=== PATIENT | female | born 1995 | race Two or more races ===

== ENCOUNTER 2016-09-17 13:56 | Emergency (ER) | payer OTHER | END 2016-09-17 15:55 | disposition home or self-care (01) | LOC: ED 13:56 | DX: S06.0X9A Concussion with loss of consciousness of unspecified duration, initial encounter (principal); W18.30XA Fall on same level, unspecified, initial encounter; Y93.H9 Activity, other involving exterior property and land maintenance, building and construction; Y92.007 Garden or yard of unspecified non-institutional (private) residence as the place of occurrence of the external cause ==